=== PATIENT | female | born 1990 | race Hispanic/Latino ===

== ENCOUNTER 2019-07-02 08:13 | Inpatient (IN) ==
--- NOTE | 2019-07-02 08:41 | PROVIDER DOCUMENTATION ---
HPI-Female /OB/Breast - General Chief Complaint: OB-Active Labor Stated Complaint: OB RELATED Time Seen by Provider: 07/02/19 08:36 Source: reports: patient, family Allergies/Adverse Reactions: Patient Allergies Allergy/AdvReac Type Severity Reaction Status Date / Time No Known Allergies Allergy Verified 07/02/19 08:19 Home Medications: Home Medication List Medication Instructions Recorded Confirmed Last Taken Type 48/Iron/Folic Acid/B6 1 each PO DAILY #30 tablet.seq 02/03/18 07/02/19 03/03/18 Rx [Citranatal B-Calm Combo Pack] - History of Present Illness-Female /OB Nature of Presenting Problem: 28YO HSIPANIC FEMALE WITH HER PRESENT TERN AND IN LABOR. ONSET PAINS 0600. PELVIC AND LOW BACK PAINS Q 10 MIN. NO VAGINAL FLUID OR BLEEDING. . Review of Systems - Adult - REVIEW OF SYSTEMS - ADULT Constitutional: reports: no symptoms reported. denies: chills Eyes: reports: no symptoms reported Ears, Nose, Mouth & Throat: reports: no symptoms reported Cardiovascular: reports: no symptoms reported Respiratory: reports: no symptoms reported Gastrointestinal: reports: no symptoms reported Genitourinary: reports: no symptoms reported Musculoskeletal: reports: no symptoms reported Integumentary: reports: no symptoms reported Neurological: reports: no symptoms reported Psychiatric: reports: no symptoms reported Endocrine: reports: no symptoms reported Hematologic/Lymphatic: reports: no symptoms reported Allergic/Immunologic: reports: no symptoms reported All Other Systems: Reviewed and Negative Past History - Adult - PAST MEDICAL HISTORY-ADULT Review of Records: reports: Nursing Assessment Review, Medications Reviewed, Social history reviewed & non-contributory. Major Childhood Illnesses: reports: denies history Cardiovascular: reports: denies history Respiratory: reports: denies history Gastrointestinal: reports: denies history Obstetrical/Gynecological: reports: denies history Genitourinary: reports: denies history Musculoskeletal: reports: denies history Neurological: reports: denies history Endocrine/Immune: reports: denies history Other Conditions: reports: denies history - PRIOR SURGERIES/PROCEDURES Surgical/Procedure History: reports: none - IMMUNIZATION STATUS Childhood Immunizations: See Nurse Assessment Flu Vaccine: See Nurse Assessment Physical Exam-General - CONSTITUTIONAL General Appearance: appears well, alert, no apparent distress, anxious - EYES Eyes: PERRL/EOMI - HEAD, EARS, NOSE, MOUTH & THROAT HENMT: normocephalic/atraumatic, moist mucous membranes - NECK Neck: non-tender, full range of motion, supple - RESPIRATORY Respiratory: chest non-tender, lungs clear, normal breath sounds - CARDIOVASCULAR Cardiovascular: normal peripheral pulses, regular rate, rhythm, no edema, no JVD , no murmur - GASTROINTESTINAL (ABDOMEN) Abdominal Exam: non tender, soft, other (GRAVID UTERUS NEARLY TO COSTAL MARGIN IS FIM BUT NOT HARD ; FHT 138) - MUSCULOSKELETAL Extremity: normal range of motion, non-tender, normal gait, no pedal edema, no calf tenderness - SKIN Integumentary: normal color, normal turgor, warm/dry - NEUROLOGIC Neurologic: metrology specialist II-XII nml as tested, grossly normal, no motor/sensory deficits - PSYCHIATRIC Psych/Mental Status: normal mood/affect, oriented x 3 Progress - PLAN OF CARE/RESULTS Progress/Plan/Lab Results: Vital Signs - 8 hr 07/02/19 08:16 Temperature 98.3 F Pulse Rate 89 Respiratory Rate 20 Blood Pressure 112/76 O2 Sat by Pulse Oximetry 99 Departure - Departure Date of Disposition Decision: 07/02/19 Time of Disposition Decision: 08:39 DIAGNOSIS: Term Disposition: ADMITTED INPATIENT 09 Certified Medical Emergency: Emergent Condition: Stable Referrals and Follow-Ups: None,PCP [Primary Care Provider] - - Critical Care Note This patient required my direct & personal management of CC.: No Attestation - Physician/ MARCIA Attestation The physician spent face to face time with patient:: Yes Advanced Practice Provider documentation review:: Supervising physician onsite and consulted in the evaluation and care of this patient. The physician did have a face to face encounter with the patient.
[2019-07-02] MEDS ORDERED: PEPCID PO ONE (08:56)
[2019-07-02] MEDS ORDERED: KEFZOL 1 GM/D5W 1 GM/50 ML IVPB IV PRN (08:56)
[2019-07-02] MEDS ORDERED: PEPCID PO PRN (08:56)
[2019-07-02] MEDS ORDERED: PEPCID IV PRN (08:56)
[2019-07-02] MEDS ORDERED: TYLENOL PO PRN (08:56)
[2019-07-02] MEDS ORDERED: STADOL IV PRN (08:56)
[2019-07-02] MEDS ORDERED: ZOFRAN IV PRN (08:56)
[2019-07-02] MEDS ORDERED: LR 500 ML IV ONE (08:56)
[2019-07-02] MEDS ORDERED: REGLAN PO ONE (08:56)
[2019-07-02] MEDS ORDERED: LR 1,000 ML IV SCH (09:00)
[2019-07-02] MEDS ORDERED: SODIUM CHLORIDE 0.9% INJ SCH (09:00)
[2019-07-02] MEDS ORDERED: PITOCIN 30 UNITS/NS 30 UNIT/500 ML IV.SOLN IV SCH ×2 (09:00→12:00)
[2019-07-02] MEDS ORDERED: AMPICILLIN 2 GM in NS 100 ML IV ONE (09:19)
[2019-07-02 09:31] LABS: BASO# 0.01 X1000 (0.0-0.2); BASO% 0.2 % (0.0-0.8); EOS# 0.01 X1000 (0.0-0.7); EOS% 0.2 % (0.0-10.0); HEMATOCRIT 31.3 % (37.0-47.0); HEMOGLOBIN 9.5 g/dL (12.0-16.0); IMM GRAN# 0.02 X1000 (0.0-0.04); IMM GRAN% 0.3 % (0.0-0.5); LYMPH# 1.89 X1000 (1.2-3.4); LYMPH% 29.9 % (20.5-51.1); MCH 24.5 PG (27-31); MCHC 30.4 g/dL (33-37); MCV 80.9 FL (81-99); MONO# 0.33 X1000 (0.11-0.59); MONO% 5.2 % (1.7-9.3); MPV 11.4 FL (7.4-10.4); NEUT# 4.06 X1000 (1.4-6.5); NEUT% 64.2 % (42.2-75.2); PLT 168 X1000 (130-400); RBC 3.87 XMIL (4.2-5.4); WBC 6.32 X1000 (4.8-10.8)
[2019-07-02] MEDS ORDERED: XYLOCAINE-MPF 1% INJ ONE (09:36)
--- NOTE | 2019-07-02 10:10 | HISTORY AND PHYSICAL ---
HISTORY OF PRESENT ILLNESS: The patient a 28-year-old female G4, P3 presents with no care complaining of uterine contractions. She does not speak [place], and does not speak Faroese. She speaks [*] dialect. PAST MEDICAL HISTORY: Unremarkable. PAST SURGICAL HISTORY: None. PAST OB HISTORY: G4, P3. Spontaneous vaginal delivery x3. Her last child was 1 year ago and was roughly 8 pounds. GLASS INSTALLER TECHNICIAN HISTORY: Menarche unknown. FAMILY HISTORY: Noncontributory. REVIEW OF SYSTEMS: All systems reviewed and noncontributory. MEDICATIONS: vitamins. ALLERGIES: No known drug allergies. SOCIAL HISTORY: Tobacco use none. Alcohol use none. PHYSICAL EXAMINATION: VITAL SIGNS: Height 4 feet 10 inches. Estimated weight 160 pounds. Estimated temperature 97.7 degrees, blood pressure 107/60, pulse of 80, respirations 22, and heart rate in the 120s with a good [id number] variability. Uterine contractions noted to be every 3 minutes. HEENT: Pupils equal, round, and reactive to light accommodation. Extraocular movements intact. Oropharynx clear. NECK: Supple. No thyromegaly. LUNGS: Clear to auscultation. HEART: Regular rate and rhythm. ABDOMEN: Gravid, nontender. PELVIC: Cervix was 8 cm dilated, completely effaced -1 station. EXTREMITIES: No clubbing, cyanosis, or edema noted. NEUROLOGIC: Cranial nerves 2-12 grossly intact. Motor 5/5. DTRs 2+ bilaterally. ASSESSMENT/PLAN: A 28-year-old female, G4, P3, appears at term with no care in active labor. The patient will have lab panel drawn. Also, due to unknown group B group B strep status. We will start IV antibiotics for prophylaxis. Anticipate vaginal delivery. cc: Almas Castañeda III, MD
[2019-07-02 11:18] LABS: RAPID HIV PRESUMPTIVE NEGATIVE; RPR NON-REACTIVE (NONREACTIVE); RUBELLA SCREEN IMMUNE (IMMUNE)
[2019-07-02] MEDS ORDERED: HYDROXYZINE IM PRN (11:58)
[2019-07-02] MEDS ORDERED: AMBIEN PO PRN (11:58)
[2019-07-02] MEDS ORDERED: ATARAX PO PRN (11:58)
[2019-07-02] MEDS ORDERED: BOOSTRIX VACCINE IM ONE (11:58)
[2019-07-02] MEDS ORDERED: MINERAL OIL PO PRN (11:58)
[2019-07-02] MEDS ORDERED: XYLOCAINE-MPF 1% INJ PRN (11:58)
[2019-07-02] MEDS ORDERED: BENADRYL IV PRN (11:58)
[2019-07-02] MEDS ORDERED: CYTOTEC PO PRN (11:58)
[2019-07-02] MEDS ORDERED: NORCO-5 PO PRN (11:58)
[2019-07-02] MEDS ORDERED: PERI MEDS (DERMOPLAST/NUPERCAINAL/TUCKS) MISC PRN (11:58)
[2019-07-02] MEDS ORDERED: BENADRYL PO PRN (11:58)
[2019-07-02] MEDS ORDERED: M-M-R II VACCINE SUBQ ONE (11:58)
[2019-07-02] MEDS ORDERED: PITOCIN IM PRN (11:58)
[2019-07-02] MEDS ORDERED: PITOCIN 20 UNITS/NS 20 UNITS/1,000 ML IV.SOLN IV SCH (12:00)
--- NOTE | 2019-07-02 12:51 | OPERATIVE NOTE ---
PROCEDURE DATE: 07/02/2019 DELIVERY NOTE: The patient progressed to complete and pushing, had spontaneous vaginal delivery of a female infant, 8 pounds 5 ounces, Apgars of 8 and 10 at 11:41 on 07/02/2019 over an intact perineum. Cord blood sample was obtained at this time. Placenta was then delivered intact with 3 vessel cord. ESTIMATED BLOOD LOSS: 250 mL. ANESTHESIA: None. COUNTS: All counts were correct x2. cc: Almas Castañeda III, MD
[2019-07-02] MEDS ORDERED: METHERGINE IM ONE (13:36)
[2019-07-02] MEDS ORDERED: METHERGINE PO SCH (14:00)
[2019-07-02] MEDS: NORCO-10 PO PRN (14:18)
[2019-07-02] MEDS: MOTRIN PO PRN (14:19)
[2019-07-02] MEDS: PERICOLACE PO SCH (20:23)
[2019-07-02 22:08] LABS: HIV ANTIBODY SCREEN SEE COMMENTS
[2019-07-02] MEDS: METHERGINE PO SCH (22:41)
[2019-07-03 00:42] LABS: URINE SOURCE VOIDED
[2019-07-03 00:58] LABS: BILIRUBIN URINE NEGATIVE (NEGATIVE); BLOOD URINE LARGE (NEGATIVE); CLARITY CLOUDY (CLEAR); COLOR RED; GLUCOSE URINE NEGATIVE (NEGATIVE); KETONE URINE NEGATIVE (NEGATIVE); LEUKOCYTES URINE TRACE (NEGATIVE); NITRITE URINE NEGATIVE (NEGATIVE); PROTEIN URINE 100 mg/dL (NEGATIVE); SP GRAVITY URINE 1.015; UROBILINOGEN URINE 0.2 EU/dL (0.2-1.0)
[2019-07-03 01:25] LABS: UR AMPHETAMINES QUAL NONE DETECTED (NONE DETECT); UR BARBITUATES QUAL NONE DETECTED (NONE DETECT); UR BENZODIAZEPIN QUAL NONE DETECTED (NONE DETECT); UR CANNABINOIDS QUAL NONE DETECTED (NONE DETECT); UR COCAINE QUAL NONE DETECTED (NONE DETECT); UR METHADONE QUAL NONE DETECTED (NONE DETECT); UR OPIATES QUAL NONE DETECTED (NONE DETECT); UR OXYCODONE QUAL NONE DETECTED (NONE DETECT); UR PCP QUAL NONE DETECTED (NONE DETECT)
[2019-07-03] MEDS: METHERGINE PO SCH ×3 (03:57→17:31)
[2019-07-03] MEDS: MOTRIN PO PRN ×2 (07:38→17:26)
[2019-07-03 07:52] LABS: BASO# 0.01 X1000 (0.0-0.2); BASO% 0.1 % (0.0-0.8); EOS# 0.03 X1000 (0.0-0.7); EOS% 0.4 % (0.0-10.0); HEMATOCRIT 23.8 % (37.0-47.0); HEMOGLOBIN 6.9 g/dL (12.0-16.0); IMM GRAN# 0.02 X1000 (0.0-0.04); IMM GRAN% 0.2 % (0.0-0.5); LYMPH# 2.62 X1000 (1.2-3.4); LYMPH% 32.1 % (20.5-51.1); MCH 23.8 PG (27-31); MCV 82.1 FL (81-99); MONO# 0.56 X1000 (0.11-0.59); MONO% 6.9 % (1.7-9.3); MPV 11.6 FL (7.4-10.4); NEUT# 4.93 X1000 (1.4-6.5); NEUT% 60.3 % (42.2-75.2); PLT 163 X1000 (130-400); RDW 16.2 % (11.5-14.5); WBC 8.17 X1000 (4.8-10.8)
[2019-07-03 09:13] LABS: HEPATITIS B SURFACE ANTIGEN SEE COMMENTS
--- NOTE | 2019-07-03 09:17 | OB/GYN PROGRESS NOTE ---
Progress Note OB - . Patient Problems: Current Active Problems Problem Status Onset Term Acute OB Progress Note: Vital Signs - 24 hr 07/02/19 16:30 07/02/19 20:17 07/03/19 00:27 Temperature 98.9 F 97.6 F 97.2 F L Pulse Rate 81 84 74 Respiratory Rate 20 18 18 Blood Pressure 110/61 113/71 90/50 O2 Sat by Pulse Oximetry 98 99 98 07/03/19 03:54 Temperature 97.5 F L Pulse Rate 72 Respiratory Rate 16 Blood Pressure 87/51 O2 Sat by Pulse Oximetry 98 Laboratory Results - last 24 hr 07/02/19 07/02/19 07/02/19 09:07 09:07 09:07 WBC 6.32 RBC 3.87 L Hgb 9.5 L Hct 31.3 L MCV 80.9 L MCH 24.5 L MCHC 30.4 L RDW Std Deviation 16.0 H Plt Count 168 MPV 11.4 H Immature Gran % (Auto) 0.3 Neut % (Auto) 64.2 Lymph % (Auto) 29.9 [place] % (Auto) 5.2 Eos % (Auto) 0.2 Baso % (Auto) 0.2 Immature Gran # (Auto) 0.02 Neut # (Auto) 4.06 Lymph # (Auto) 1.89 [place] # (Auto) 0.33 Eos # (Auto) 0.01 Baso # (Auto) 0.01 Glucose 75 Urine Source Urine Color Urine Clarity Urine pH Ur Specific [place] Urine Protein Urine Ketones Urine Blood Urine Nitrite Urine Bilirubin Urine Urobilinogen Urine WBC Urine Glucose Urine Opiates Screen Ur Oxycodone Screen Ur Methadone, Qual Ur Barbiturates Screen Ur Phencyclidine Scrn Ur Amphetamines Screen U Benzodiazepines Scrn Urine Cocaine Screen U Cannabinoids Screen RPR NON-REACTIVE Hep Bs Antigen HIV 1&2 Antibody Screen HIV 1&2 Antibody Rapid PRESUMPTIVE NEGATIVE Rubella Immunity Screen IMMUNE Blood Type Antibody Screen 07/02/19 07/02/19 07/02/19 09:07 09:07 11:18 WBC RBC Hgb Hct MCV MCH MCHC RDW Std Deviation Plt Count MPV Immature Gran % (Auto) Neut % (Auto) Lymph % (Auto) [place] % (Auto) Eos % (Auto) Baso % (Auto) Immature Gran # (Auto) Neut # (Auto) Lymph # (Auto) [place] # (Auto) Eos # (Auto) Baso # (Auto) Glucose Urine Source Urine Color Urine Clarity Urine pH Ur Specific [place] Urine Protein Urine Ketones Urine Blood Urine Nitrite Urine Bilirubin Urine Urobilinogen Urine WBC Urine Glucose Urine Opiates Screen Ur Oxycodone Screen Ur Methadone, Qual Ur Barbiturates Screen Ur Phencyclidine Scrn Ur Amphetamines Screen U Benzodiazepines Scrn Urine Cocaine Screen U Cannabinoids Screen RPR Hep Bs Antigen SEE COMMENTS HIV 1&2 Antibody Screen SEE COMMENTS HIV 1&2 Antibody Rapid Rubella Immunity Screen Blood Type O POSITIVE Antibody Screen NEGATIVE 07/03/19 07/03/19 07/03/19 00:30 00:30 05:50 WBC 8.17 RBC 2.90 L Hgb 6.9 L D Hct 23.8 L D MCV 82.1 MCH 23.8 L MCHC 29.0 L RDW Std Deviation 16.2 H Plt Count 163 MPV 11.6 H Immature Gran % (Auto) 0.2 Neut % (Auto) 60.3 Lymph % (Auto) 32.1 [place] % (Auto) 6.9 Eos % (Auto) 0.4 Baso % (Auto) 0.1 Immature Gran # (Auto) 0.02 Neut # (Auto) 4.93 Lymph # (Auto) 2.62 [place] # (Auto) 0.56 Eos # (Auto) 0.03 Baso # (Auto) 0.01 Glucose Urine Source VOIDED Urine Color RED Urine Clarity CLOUDY A Urine pH 7.0 Ur Specific [place] 1.015 Urine Protein 100 A Urine Ketones NEGATIVE Urine Blood LARGE A Urine Nitrite NEGATIVE Urine Bilirubin NEGATIVE Urine Urobilinogen 0.2 Urine WBC TRACE A Urine Glucose NEGATIVE Urine Opiates Screen NONE DETECTED Ur Oxycodone Screen NONE DETECTED Ur Methadone, Qual NONE DETECTED Ur Barbiturates Screen NONE DETECTED Ur Phencyclidine Scrn NONE DETECTED Ur Amphetamines Screen NONE DETECTED U Benzodiazepines Scrn NONE DETECTED Urine Cocaine Screen NONE DETECTED U Cannabinoids Screen NONE DETECTED RPR Hep Bs Antigen HIV 1&2 Antibody Screen HIV 1&2 Antibody Rapid Rubella Immunity Screen Blood Type Antibody Screen PPD#1 s/p with bleeding after - PP hemorrhage large baby. Hgb on admit 9.5- >6.9. No symptoms. Does not speak much [place]. Decreased lochia, No abd pain. Npo SOB, CP or leg pain. VSS AF Gen - Pt in no apparent distress, A&O x 3 ABD - soft, NT, ND, FF Extreme - No CCE A/p Anemia - No symtpoms - will start iron BID and recheck CBC in am
[2019-07-03] MEDS: FERROUS SULFATE PO SCH ×2 (09:53→20:20)
[2019-07-03] MEDS ORDERED: FLU VACCINE IM ONE (11:00)
[2019-07-03] MEDS: PERICOLACE PO SCH (20:20)
[2019-07-03] MEDS: NORCO-10 PO PRN (20:20)
[2019-07-04 05:04] LABS: BASO# 0.01 X1000 (0.0-0.2); BASO% 0.2 % (0.0-0.8); EOS# 0.07 X1000 (0.0-0.7); EOS% 1.1 % (0.0-10.0); IMM GRAN# 0.02 X1000 (0.0-0.04); IMM GRAN% 0.3 % (0.0-0.5); LYMPH# 1.99 X1000 (1.2-3.4); LYMPH% 32.3 % (20.5-51.1); MCH 24.2 PG (27-31); MCV 83.3 FL (81-99); MONO# 0.33 X1000 (0.11-0.59); MONO% 5.3 % (1.7-9.3); MPV 10.5 FL (7.4-10.4); NEUT# 3.75 X1000 (1.4-6.5); NEUT% 60.8 % (42.2-75.2); PLT 155 X1000 (130-400); RDW 16.1 % (11.5-14.5); WBC 6.17 X1000 (4.8-10.8)
[2019-07-04 05:05] LABS: HEMOGLOBIN 5.8 g/dL (12.0-16.0)
[2019-07-04] MEDS ORDERED: NS 1,000 ML IV SCH (05:30)
[2019-07-04] MEDS ORDERED: BENADRYL PO ONE (05:34)
[2019-07-04] MEDS ORDERED: TYLENOL PO ONE (05:34)
--- NOTE | 2019-07-04 06:21 | OB/GYN PROGRESS NOTE ---
Progress Note OB - . Patient Problems: Current Active Problems Problem Status Onset Term Acute OB Progress Note: Vital Signs - 24 hr 07/03/19 07:35 07/03/19 12:08 07/03/19 20:07 Temperature 98.2 F 98.3 F 97.2 F L Pulse Rate 75 77 90 Respiratory Rate 16 18 18 Blood Pressure 96/55 92/52 85/50 O2 Sat by Pulse Oximetry 98 98 07/04/19 01:04 Temperature 97.4 F L Pulse Rate 80 Respiratory Rate 18 Blood Pressure 89/56 O2 Sat by Pulse Oximetry 96 Laboratory Results - last 24 hr 07/02/19 07/02/19 07/03/19 09:07 09:07 05:50 WBC 8.17 RBC 2.90 L Hgb 6.9 L D Hct 23.8 L D MCV 82.1 MCH 23.8 L MCHC 29.0 L RDW Std Deviation 16.2 H Plt Count 163 MPV 11.6 H Immature Gran % (Auto) 0.2 Neut % (Auto) 60.3 Lymph % (Auto) 32.1 [place] % (Auto) 6.9 Eos % (Auto) 0.4 Baso % (Auto) 0.1 Immature Gran # (Auto) 0.02 Neut # (Auto) 4.93 Lymph # (Auto) 2.62 [place] # (Auto) 0.56 Eos # (Auto) 0.03 Baso # (Auto) 0.01 Hep Bs Antigen SEE COMMENTS Blood Type O POSITIVE Antibody Screen NEGATIVE Crossmatch See Detail 07/04/19 04:36 WBC 6.17 RBC 2.40 L Hgb 5.8 L* D Hct 20.0 L MCV 83.3 MCH 24.2 L MCHC 29.0 L RDW Std Deviation 16.1 H Plt Count 155 MPV 10.5 H Immature Gran % (Auto) 0.3 Neut % (Auto) 60.8 Lymph % (Auto) 32.3 [place] % (Auto) 5.3 Eos % (Auto) 1.1 Baso % (Auto) 0.2 Immature Gran # (Auto) 0.02 Neut # (Auto) 3.75 Lymph # (Auto) 1.99 [place] # (Auto) 0.33 Eos # (Auto) 0.07 Baso # (Auto) 0.01 Hep Bs Antigen Blood Type Antibody Screen Crossmatch Critical lab value this AM H&H 5.8 and 20.0. H&H was 6.9/23.8 PPD#1. Mild PPH reported - got Methergine only. Pulse 80-90 BP 80's/50's. Patient asymptomatic. Pre-delivery Hgb 9.5. Patient signed for blood transfusion if needed when certified hyperbaric technician line used on admit. Recommend transfusion as Hgb less than 6 - concern for cardiac issues or syncope on home going. Discussed with patient recommend getting blood as her levels are low. Acknowledges she understands. T&C for 2 units. Pretreat with Tylenol and Benadryl ordered. Check H&H 2 hours post 1st unit. Await results for decision regarding second unit. Will check out to oncoming doctor at 7 am.
[2019-07-04 12:01] VITALS: BP 117/74
[2019-07-04] MEDS: FERROUS SULFATE PO SCH (12:07)
[2019-07-04 13:54] LABS: HEMATOCRIT 30.2 % (37.0-47.0); HEMOGLOBIN 9.1 g/dL (12.0-16.0)
--- NOTE | 2019-07-04 16:25 | OB/GYN PROGRESS NOTE ---
- Subjective Pt seen and examined. PPD#2 s/p with PPH s/p 2 units of pRBC. Pt currently w/o complaints/ Ambulating and urinating w/o difficulty. Tolerating regular denies. Denies dizziness/sob/cp. OB Physical Exam Vital Signs - 8 hr 07/04/19 08:32 07/04/19 09:40 07/04/19 10:11 Temperature 97.1 F L 98.1 F 98.1 F Pulse Rate 82 75 80 Respiratory Rate 14 18 18 Blood Pressure 107/68 87/53 92/56 O2 Sat by Pulse Oximetry 100 100 99 07/04/19 10:26 07/04/19 10:41 07/04/19 11:59 Temperature 97.6 F 98.5 F 97.9 F Pulse Rate 75 81 83 Respiratory Rate 16 16 16 Blood Pressure 99/65 111/72 117/74 O2 Sat by Pulse Oximetry 100 99 97 Active Medications Generic Name Dose Route Start Last Admin Trade Name Freq PRN Reason Stop Dose Admin Acetaminophen 650 mg 07/02/19 08:56 Tylenol PO Q4-6H PRN PRN Headache Hydrocodone Bitart/Acetaminophen 1 each 07/02/19 11:58 07/03/19 20:20 [place]-10 PO 1 each Q3-4H PRN PRN Administration Pain (7-10 on Pain Scale) Hydrocodone Bitart/Acetaminophen 1 each 07/02/19 11:58 07/02/19 20:24 [place]-5 PO 1 each Q3-4H PRN PRN Administration Pain (1-6 on Pain Scale) Benzocaine 1 each 07/02/19 11:58 Diana Meds (Dermoplast/Nupercainal/Tucks) MISC 3-4XDAY PRN PRN episiotomy/hemorrhoids Butorphanol Tartrate 2 mg 07/02/19 08:56 Stadol IV PRN PRN Pain Diphenhydramine HCl 12.5 mg 07/02/19 11:58 Benadryl IV Q4H PRN PRN Itching Diphenhydramine HCl 25 mg 07/02/19 11:58 Benadryl PO Q4H PRN PRN Itching Famotidine 20 mg 07/02/19 08:56 Pepcid IV Q12H PRN PRN GI upset or indigestion Famotidine 40 mg 07/02/19 08:56 Pepcid PO Q12H PRN PRN GI upset or indigestion Ferrous Sulfate 325 mg 07/03/19 09:30 07/04/19 12:07 Ferrous Sulfate PO 325 mg BID DORIS Administration Hydroxyzine HCl 50 mg 07/02/19 11:58 Atarax PO Q3-4H PRN PRN Nausea Hydroxyzine HCl 50 mg 07/02/19 11:58 Hydroxyzine IM Q3-4H PRN PRN Nausea Cefazolin Sodium/Dextrose 1 gm in 50 mls @ 100 mls/hr 07/02/19 08:56 Kefzol 1 Gm/D5w IV ONCE PRN PRN SECTION Oxytocin/Sodium Chloride 30 unit in 500 mls @ 0 mls/hr 07/02/19 09:00 Pitocin 30 Units/Ns IV .Q0M DORIS As Directed Oxytocin/Sodium Chloride 20 units in 1,000 mls @ 0 mls/hr 07/02/19 12:00 07/02/19 13:00 Pitocin 20 Units/Ns IV 125 mls/hr .Q0M DORIS Administration As Directed Sodium Chloride 1,000 mls @ 0 mls/hr 07/04/19 05:30 07/04/19 06:19 Ns IV 37 mls/hr .Q0M DORIS Administration As Directed Ibuprofen 800 mg 07/02/19 11:58 07/03/19 17:26 Motrin PO 800 mg Q8H PRN PRN Administration cramping Lidocaine HCl 30 ml 07/02/19 11:58 Xylocaine-Mpf 1% INJ PRN PRN Perineal repair Mineral Oil 30 ml 07/02/19 11:58 Mineral Oil PO PRN PRN Perineal massage Misoprostol 800 microgm 07/02/19 11:58 Cytotec PO PRN PRN Severe bleeding Ondansetron HCl 4 mg 07/02/19 08:56 Zofran IV PRN PRN Nausea Oxytocin 20 unit 07/02/19 11:58 Pitocin IM PRN PRN Severe bleeding Senna/Docusate Sodium 1 each 07/02/19 21:00 07/03/19 20:20 Pericolace PO 1 each QHS DORIS Administration Sodium Chloride 5 - 10 ml 07/02/19 09:00 Sodium Chloride 0.9% INJ DIRECTED DORIS Zolpidem Tartrate 10 mg 07/02/19 11:58 Ambien PO HS PRN PRN Sleep Laboratory Results - last 24 hr 07/02/19 07/02/19 07/04/19 00:30 09:07 04:36 WBC 6.17 RBC 2.40 L Hgb 5.8 L* D Hct 20.0 L MCV 83.3 MCH 24.2 L MCHC 29.0 L RDW Std Deviation 16.1 H Plt Count 155 MPV 10.5 H Immature Gran % (Auto) 0.3 Neut % (Auto) 60.8 Lymph % (Auto) 32.3 [place] % (Auto) 5.3 Eos % (Auto) 1.1 Baso % (Auto) 0.2 Immature Gran # (Auto) 0.02 Neut # (Auto) 3.75 Lymph # (Auto) 1.99 [place] # (Auto) 0.33 Eos # (Auto) 0.07 Baso # (Auto) 0.01 Ur Chlamydia/GC DNA SEE COMMENTS Blood Type O POSITIVE Antibody Screen NEGATIVE Crossmatch See Detail 07/04/19 13:45 WBC RBC Hgb 9.1 L D Hct 30.2 L D MCV MCH MCHC RDW Std Deviation Plt Count MPV Immature Gran % (Auto) Neut % (Auto) Lymph % (Auto) [place] % (Auto) Eos % (Auto) Baso % (Auto) Immature Gran # (Auto) Neut # (Auto) Lymph # (Auto) [place] # (Auto) Eos # (Auto) Baso # (Auto) Ur Chlamydia/GC DNA Blood Type Antibody Screen Crossmatch - Assessment & Plan (1) Vaginal delivery Status: Acute (2) Intrauterine Status: Acute (3) hemorrhage Status: Acute - Progress Note Disposition: 28yo PPD#2 s/p with PPH s/p 2 units pRBC -HD stable s/p pRBC -oob to ambulation -regular diet -ferrous sulfate bid -f/u in 6 weeks
== END 2019-07-04 16:20 | disposition home or self-care (01) | DRG 806 ==
LOC: P.ED 08:13 → EDSTATUS 08:52 → LD 08:54
PROVIDERS: ADMIT Obstetrics & Gynecology; ATTEND Obstetrics & Gynecology